=== PATIENT | female | born 1960 ===

== ENCOUNTER 2019-11-20 14:29 | Observation (INO) ==
[2019-11-20] MEDS ORDERED: Ondansetron 4 MG/2 ML VIAL IVP ONE (14:48)
[2019-11-20] MEDS ORDERED: Morphine Sulfate 2 MG/ML SYRINGE IVP ONE (14:48)
[2019-11-20 15:34] LABS: Basophils # 0.1 K/mcL (0.0-0.2); Basophils % 0.7 %; Eosinophils # 0.2 K/mcL (0.0-0.6); Eosinophils % 2.9 %; Hematocrit 40.7 % (35.3-44.9); Hemoglobin 12.8 g/dL (11.5-15.4); Immature Granulocytes % 0.2 % (0-4); Lymphocytes # 2.4 K/mcL (0.6-4.6); Lymphocytes % 29.2 %; Mean Corpuscular HGB Conc 31.4 g/dL (31.6-35.5); Mean Corpuscular Hemoglobin 27.7 pg (28.0-33.3); Mean Corpuscular Volume 88.1 fL (83.0-100.0); Mean Platelet Volume 9.4 fL (9.4-12.4); Monocytes # 0.7 K/mcL (0.0-1.3); Monocytes % 8.2 %; Neutrophils # 4.9 K/mcL (1.6-8.9); Platelet Count 329 K/mcL (140-400); Red Blood Count 4.62 M/mcL (3.82-4.97); Red Cell Distribution Width 13.9 % (11.5-14.5); Segmented Neutrophils % 58.8 %; White Blood Count 8.3 K/mcL (4.3-11.1)
[2019-11-20 15:56] LABS: Acetaminophen < 10 mcg/mL (10-20); Alanine Aminotransferase 27 Units/L (7-52); Albumin 4.2 g/dL (3.5-5.7); Albumin/Globulin Ratio 1.8 (1.1-2.2); Alkaline Phosphatase 79 Units/L (34-104); Aspartate Amino Transferase 20 Units/L (13-39); BUN/Creatinine Ratio 28 (6-26); Bilirubin,Total 0.2 mg/dL (0.3-1.0); Blood Urea Nitrogen 17 mg/dL (6-20); Calcium 9.6 mg/dL (8.6-10.3); Carbon Dioxide 26 mEq/L (23-29); Chloride 110 mEq/L (98-107); Globulin 2.4 g/dL (2.4-3.5); Glucose 87 mg/dL (70-105); Lipase 69 Units/L (11-82); Osmolality,Calculated 293 (280-300); Potassium 3.4 mEq/L (3.5-5.1); Sodium 141 mEq/L (136-145); Total Protein 6.6 g/dL (6.4-8.9); eGFR For African Americans > 60 (> 60); eGFR For Non-African Americans > 60 (> 60)
[2019-11-20 15:57] LABS: Troponin I < 0.03 ng/mL (< 0.04)
[2019-11-20] MEDS ORDERED: 0.9 % Sodium Chloride 1,000 ML IVC SCH (19:54)
[2019-11-20] MEDS ORDERED: Ondansetron 4 MG/2 ML VIAL IVP PRN (19:54)
[2019-11-20] MEDS ORDERED: *HR* Metoprolol 5 MG/5 ML VIAL IVP PRN (19:54)
[2019-11-20] MEDS: cefOXitin 2,000 MG in Water for inj. (sterile) 20 ML IVP SCH (23:41)
[2019-11-21 05:16] LABS: Basophils # 0.1 K/mcL (0.0-0.2); Basophils % 1.1 %; Eosinophils # 0.2 K/mcL (0.0-0.6); Eosinophils % 4.3 %; Hematocrit 40.3 % (35.3-44.9); Hemoglobin 12.5 g/dL (11.5-15.4); Immature Granulocytes % 0.2 % (0-4); Lymphocytes # 2.1 K/mcL (0.6-4.6); Mean Corpuscular Hemoglobin 27.4 pg (28.0-33.3); Mean Corpuscular Volume 88.4 fL (83.0-100.0); Mean Platelet Volume 9.6 fL (9.4-12.4); Monocytes # 0.5 K/mcL (0.0-1.3); Monocytes % 9.2 %; Neutrophils # 2.7 K/mcL (1.6-8.9); Platelet Count 281 K/mcL (140-400); Red Blood Count 4.56 M/mcL (3.82-4.97); Red Cell Distribution Width 13.9 % (11.5-14.5); Segmented Neutrophils % 48.2 %; White Blood Count 5.5 K/mcL (4.3-11.1)
[2019-11-21 05:25] LABS: Alanine Aminotransferase 26 Units/L (7-52); Albumin 3.8 g/dL (3.5-5.7); Albumin/Globulin Ratio 1.7 (1.1-2.2); Alkaline Phosphatase 63 Units/L (34-104); Amylase 34 Units/L (29-103); Aspartate Amino Transferase 20 Units/L (13-39); BUN/Creatinine Ratio 23 (6-26); Bilirubin,Direct 0.1 mg/dL (0.0-0.2); Bilirubin,Indirect 0.3 mg/dL (0.0-1.0); Bilirubin,Total 0.4 mg/dL (0.3-1.0); Blood Urea Nitrogen 15 mg/dL (6-20); Calcium 8.8 mg/dL (8.6-10.3); Carbon Dioxide 27 mEq/L (23-29); Chloride 111 mEq/L (98-107); Globulin 2.2 g/dL (2.4-3.5); Glucose 87 mg/dL (70-105); Lipase 29 Units/L (11-82); Osmolality,Calculated 294 (280-300); Potassium 3.6 mEq/L (3.5-5.1); Sodium 142 mEq/L (136-145); eGFR For African Americans > 60 (> 60); eGFR For Non-African Americans > 60 (> 60)
[2019-11-21] MEDS ORDERED: Pantoprazole 40 MG VIAL IVP SCH (09:00)
[2019-11-21] MEDS: cefOXitin 2,000 MG in Water for inj. (sterile) 20 ML IVP SCH ×2 (09:09→17:41)
[2019-11-21] MEDS ORDERED: *HR* Promethazine 25 MG/ML VIAL IVP PRN (13:07)
[2019-11-21] MEDS ORDERED: *HR* Labetalol 20 MG/4 ML SYRINGE IVP PRN (13:07)
[2019-11-21] MEDS ORDERED: Ondansetron 4 MG/2 ML VIAL IVP PRN ×2 (13:07→15:49)
[2019-11-21] MEDS ORDERED: *HR* HYDROmorphone (PF) 1 MG/ML SYRINGE IVP PRN (13:07)
[2019-11-21] MEDS ORDERED: *HR* Propofol 200 MG/20 ML VIAL IVP ONE (13:15)
[2019-11-21] MEDS ORDERED: Ondansetron 4 MG/2 ML VIAL ONE (13:15)
[2019-11-21] MEDS ORDERED: Lidocaine HCL 4 ML Topical Solution (Laryng-O-Jet Kit Sterile Pak) TP ONE (13:15)
[2019-11-21] MEDS ORDERED: Lidocaine -MPF 2% 2 ML VIAL ONE (13:15)
[2019-11-21] MEDS ORDERED: *HR* Succinylcholine 200 MG/10 ML VIAL IVP ONE (13:15)
[2019-11-21] MEDS ORDERED: *HR* FentaNYL (PF) 100 MCG/2 ML VIAL ONE ×2 (13:15→14:18)
[2019-11-21] MEDS ORDERED: *HR* Rocuronium Bromide 50 MG/5 ML VIAL ONE (13:15)
[2019-11-21] MEDS ORDERED: Dexamethasone 4 MG/ML VIAL ONE (13:15)
[2019-11-21] MEDS ORDERED: EPHEDrine 50 MG/ML VIAL ONE (14:04)
[2019-11-21] MEDS ORDERED: Neostigmine Methylsulfate 3 MG/3 ML SYRINGE ONE (14:17)
[2019-11-21] MEDS ORDERED: Ketorolac 30 MG/ML VIAL ONE (14:17)
[2019-11-21] MEDS ORDERED: Acetaminophen IV 1,000 MG/100 ML INFUS..BTL ONE (14:19)
[2019-11-22] MEDS: cefOXitin 2,000 MG in Water for inj. (sterile) 20 ML IVP SCH ×2 (00:03→07:10)
[2019-11-22 06:43] VITALS: BP 135/84
[2019-11-22] MEDS ORDERED: Ibuprofen 800 MG TABLET PO STA (07:55)
[2019-11-22] MEDS ORDERED: Pantoprazole 40 MG VIAL IVP SCH (09:00)
== END 2019-11-22 08:54 | disposition home or self-care (01) ==
LOC: 3ANU 14:29 → EMEROOARM 14:29 → 3ANU 19:30
PROVIDERS: ADMIT Surgery; ATTEND Surgery